=== PATIENT | male | born 1995 | race Caucasian/White ===

== ENCOUNTER 2023-05-11 12:17 | Emergency (ER) | payer BC, SELFPAY ==
--- NOTE | ~2023-05-11 | XR_ITS ---
XR foot LT min 3V 05/11/2023 12:49 INDICATION: Left foot pain PROCEDURE: 4 views left foot COMPARISON: No prior studies for comparison. FINDINGS: Fracture, dislocation or subluxation is not identified. The soft tissues appear within norm al limits. No foreign bodies are identified. IMPRESSION: 1: NO ACUTE BONE OR JOINT ABNORMALITY IDENTIFIED. Reviewed, dictated and finalized at location A.
[2023-05-11 12:54] VITALS: BP 137/80; PULSE 76; RESP 16; TEMP 36.4; O2SAT 98
--- NOTE | 2023-05-11 13:05 | ED.GENADULT ---
HPI - General Adult General Chief complaint: Extremity Injury, Lower Stated complaint: Lt Foot Pain Due To Fall Time Seen by Provider: 05/11/23 13:05 Source: patient Mode of arrival: ambulatory Limitations: no limitations History of Present Illness HPI narrative: 28-year-old male patient presents to the [facility] with complaints of left foot pain. Patient states he is on a step ladder today and fell off and landed on the left foot wrong . Related Data Home Medications Medication Instructions Recorded Confirmed No Home Medications 05/11/23 05/11/23 Allergies Allergy/AdvReac Type Severity Reaction Status Date / Time No Known Allergies Allergy Verified 05/11/23 12:52 Review of Systems Review of Systems: CONSTITUTIONAL: Denies fever, chills, or sweats. EYES: Denies visual changes, redness, or discharge. ENT: Denies rhinorrhea, congestion, sore throat, or otalgia. CARDIOVASCULAR: Denies chest pain, palpitations, or edema. RESPIRATORY: Denies cough or dyspnea. GASTROINTESTINAL: Denies abdominal pain, nausea, vomiting, or diarrhea. GENITOURINARY: Denies dysuria or hematuria. SKIN: Denies rash or itching. MUSCULOSKELETAL: Denies back pain, joint pain, or myalgia. Positive left foot pain NEUROLOGIC: Denies headache, numbness, or weakness. PSYCHIATRIC: Denies anxiety or depression. PMFSH Comments At the time of my signature I agree with nursing past medical history, surgical, social, and family history. There is no relevant family history pertinent to the presenting complaint. Exam Narrative: GENERAL: Well-appearing, well-nourished, and in no acute distress. HEAD: Normocephalic, atraumatic. EYES: PERRLA and EOMI. ENT: Nares clear, no rhinorrhea or epistaxis. Mucous membranes moist. NECK: Supple. No lymphadenopathy CHEST: Clear to auscultation. No respiratory distress. HEART: Regular rate and rhythm. No murmur heard. Normal peripheral pulses. ABDOMEN: Soft, nontender, nondistended, normal active bowel sounds. EXTREMITIES: Normal range of motion. No edema. patient has some tenderness to the lateral side of the left heel area. DP pulses 2+. No obvious open wounds or drainage noted SKIN: Warm, dry, no rash. NEURO: No focal deficits. Alert and oriented x3. Course Course Level of Care: Express Care Visit Vital Signs Vital signs: Vital Signs Temperature 36.4 C L 05/11/23 12:54 Pulse Rate 76 05/11/23 12:54 Respiratory Rate 16 05/11/23 12:54 Blood Pressure 137/80 05/11/23 12:54 Pulse Oximetry 98 05/11/23 12:54 Oxygen Delivery Room Air 05/11/23 12:54 Temperature 36.4 C L 05/11/23 12:54 Pulse Rate 76 05/11/23 12:54 Respiratory Rate 16 05/11/23 12:54 Blood Pressure 137/80 05/11/23 12:54 Pulse Oximetry 98 05/11/23 12:54 Oxygen Delivery Room Air 05/11/23 12:54 Vital signs reviewed. The patient has been informed that they may have pre-hypertension or Hypertension based on a BP reading in the department. I recommend that the patient call the primary care provider listed on their discharge instructions or a physician of their choice this week to arrange follow up for further evaluation of possible pre-hypertension or Hypertension Medical Decision Making MDM Narrative Medical decision making narrative: discussed with patient that the x-ray is negative for any acute fractures. Discussed with patient most likely contused side of his foot. We will do an Shaun wrap and put him in a postop shoe to help with walking. Patient needs to elevate it, ice it take Tylenol and ibuprofen as needed. Patient verbalized understanding denies any other questions or concerns at this time. Differential Diagnosis Differential Diagnosis: Differential diagnosis: Foot fracture, crush injury, compartment syndrome, contusion, sprain, tendinitis,lisfranc sprain or fracture, avulsion fracture, grown toenail, diabetic ulcer. Vital Signs Vital Signs: Vital Signs Temperature 36.4 C
== END 2023-05-11 13:26 | disposition home or self-care (01) ==
PROVIDERS: Emergency Provider Nurse Practitioner Family
DX: S90.32XA Contusion of left foot, initial encounter (principal); W11.XXXA Fall on and from ladder, initial encounter
CPT/HCPCS: 73630; 99203; G0463